=== PATIENT | female | born 1935 | race Asian ===

== ENCOUNTER 2017-12-29 22:28 | Inpatient (IN) | payer MEDICARE, OTHER ==
[2017-12-29 23:03] LABS: MODE ROOM AIR; MetHgb Venous 3.8 %; Sample Type Blood venous; Site VENOUS LINE; Venous COHb 1.4 %; Venous Fraction OxyHgb 51.9 %; Venous Oxygen Sat 54.7 mmHG (55.0-75.0); Venous Total Hemglobin 9.6 g/dl
[2017-12-29] MEDS: SODIUM CHLORIDE 0.9% 1L BAG IV* (23:08)
[2017-12-29] MEDS: ACETAMINOPHEN 325 MG TAB PO (23:10)
[2017-12-29 23:11] LABS: ADD MAN DIFF? NO
[2017-12-29 23:13] LABS: WHITE BLOOD COUNT 16.3 10^3/ul (4.8-10.8)
[2017-12-29 23:13] LABS: ABNORMAL IP MESSAGE 1; BASOPHIL # 0.1 10^3/ul (0.0-0.1); BASOPHILS % 0.3 % (0.0-2.0); EOSINOPHILS % 0.1 % (0.0-7.0); HEMATOCRIT 31.4 % (37.0-47.0); LYMPHOCYTES # 1.1 10^3/ul (0.8-2.9); LYMPHOCYTES % 6.5 % (15.0-51.0); MEAN CORPUSCULAR HEMOGLOBIN 16.6 pg (29.0-33.0); MEAN CORPUSCULAR HGB CONC 25.5 g/dl (32.0-37.0); MEAN PLATELET VOLUME 10.4 fl (7.4-10.4); MONOCYTE # 0.2 10^3/ul (0.3-0.9); MONOCYTES % 1.5 % (0.0-11.0); NEUTROPHIL # 14.8 10^3/ul (1.6-7.5); NEUTROPHILS % 90.9 % (39.0-77.0); PLATELET COUNT 240 10^3/UL (140-415); RED BLOOD COUNT 4.83 10^6/ul (4.20-5.40); RED CELL DISTRIBUTION WIDTH 21.1 % (11.5-14.5)
[2017-12-29 23:18] LABS: POSITIVE DIFF @See below
[2017-12-29 23:21] LABS: HEMOGLOBIN A1C 12.9 % (0-5.9)
[2017-12-29 23:32] LABS: PROTIME 13.3 Sec (11.9-14.9)
[2017-12-29 23:33] LABS: PARTIAL THROMBOPLASTIN TIME 26.3 Sec (23.0-35.0)
[2017-12-29] MEDS: CEFEPIME 2GM/50 ML (PMX) 50 ML IVPB (23:35)
[2017-12-29 23:38] LABS: ALANINE AMINOTRANSFERASE 14 IU/L (13-69); ALKALINE PHOSPHATASE 269 IU/L (42-121); ANION GAP 16 (5-13); ASPARTATE AMINO TRANSFERASE 26 IU/L (15-46); BILIRUBIN,INDIRECT 0.6 mg/dl (0-1.1); BILIRUBIN,TOTAL 0.6 mg/dl (0.2-1.3); BLOOD UREA NITROGEN 20 mg/dl (7-20); CALCIUM 9.5 mg/dl (8.4-10.2); CARBON DIOXIDE 24 mmol/L (21-31); CHLORIDE 93 mmol/L (97-110); CREATININE 1.25 mg/dl (0.44-1.00); LIPASE 925 U/L (23-300); MAGNESIUM 1.8 mg/dl (1.7-2.5); PHOSPHORUS 4.3 mg/dl (2.5-4.9); POTASSIUM 4.9 mmol/L (3.5-5.1); SODIUM 133 mmol/L (135-144); TOTAL PROTEIN 8.4 g/dl (6.1-8.1)
[2017-12-29 23:42] LABS: GLUCOSE 624 mg/dl (70-220); TROPONIN-I 0.024 ng/ml (0.000-0.120)
[2017-12-29 23:59] LABS: ADD UMIC YES; UR ASCORBIC ACID NEGATIVE (NEGATIVE); UR BILIRUBIN (Dip) NEGATIVE (NEGATIVE); UR BLOOD (Dip) 2+ mg/dL (NEGATIVE); UR CLARITY CLEAR (CLEAR); UR COLOR STRAW (YELLOW); UR GLUCOSE (Dip) 3+ mg/dL (NEGATIVE); UR KETONES (Dip) TRACE mg/dL (NEGATIVE); UR LEUKOCYTE ESTERASE (Dip) NEGATIVE Leu/ul (NEGATIVE); UR NITRITE (Dip) NEGATIVE (NEGATIVE); UR RBC 3 /HPF (0-5); UR SPECIFIC GRAVITY (Dip) 1.016 (1.003-1.030); UR TOTAL PROTEIN (Dip) 2+ mg/dl (NEGATIVE); UR UROBILINOGEN (Dip) NEGATIVE (NEGATIVE); UR WBC 1 /HPF (0-5)
[2017-12-30] MEDS: VANCOMYCIN 1 GM (PMX) 250 ML IVPB (00:05)
[2017-12-30] MEDS: INSULIN LISPRO 100 UNIT/ML VIAL SC (00:23)
[2017-12-30] MEDS: INSULIN DETEMIR [LEVEMIR] (100 UNITS/ML) SYG SC (01:00)
[2017-12-30] MEDS ORDERED: DOCUSATE SODIUM 100 MG CAP PO (01:00)
[2017-12-30] MEDS ORDERED: BISACODYL (EC) 5 MG TAB PO (01:00)
[2017-12-30] MEDS ORDERED: MAGNESIUM HYDROXIDE 30ML CUP PO (01:00)
[2017-12-30] MEDS ORDERED: NACL 0.9% 3 ML SYG IV (01:00)
[2017-12-30] MEDS ORDERED: ONDANSETRON 4 MG INJ IV (01:00)
[2017-12-30] MEDS: KETOROLAC 15 MG INJ IV (01:12)
[2017-12-30] MEDS: SOD CHLORIDE 0.9% 1,000 ML IV ×5 (01:48→20:47)
[2017-12-30] MEDS: FAMOTIDINE 20 MG TAB PO ×2 (02:57→08:57)
[2017-12-30 03:24] LABS: ADD MAN DIFF? NO
[2017-12-30 03:25] LABS: WHITE BLOOD COUNT 17.2 10^3/ul (4.8-10.8)
[2017-12-30 03:25] LABS: ABNORMAL IP MESSAGE 1; BASOPHILS % 0.2 % (0.0-2.0); HEMATOCRIT 29.7 % (37.0-47.0); HEMOGLOBIN 7.6 g/dl (12.0-16.0); LYMPHOCYTES # 1.2 10^3/ul (0.8-2.9); LYMPHOCYTES % 7.1 % (15.0-51.0); MEAN CORPUSCULAR HEMOGLOBIN 16.8 pg (29.0-33.0); MEAN CORPUSCULAR HGB CONC 25.6 g/dl (32.0-37.0); MEAN CORPUSCULAR VOLUME 65.6 fl (82.0-101.0); MEAN PLATELET VOLUME 10.1 fl (7.4-10.4); MONOCYTE # 0.4 10^3/ul (0.3-0.9); MONOCYTES % 2.2 % (0.0-11.0); NEUTROPHIL # 15.5 10^3/ul (1.6-7.5); NEUTROPHILS % 89.9 % (39.0-77.0); PLATELET COUNT 216 10^3/UL (140-415); RED BLOOD COUNT 4.53 10^6/ul (4.20-5.40)
[2017-12-30 03:27] LABS: POSITIVE DIFF @See below
[2017-12-30 03:45] LABS: AMYLASE 119 U/L (11-123); ANION GAP 11 (5-13); BLOOD UREA NITROGEN 17 mg/dl (7-20); CARBON DIOXIDE 20 mmol/L (21-31); CHLORIDE 108 mmol/L (97-110); CREATININE 0.95 mg/dl (0.44-1.00); GLUCOSE 367 mg/dl (70-220); LIPASE 568 U/L (23-300); MAGNESIUM 1.6 mg/dl (1.7-2.5); POTASSIUM 4.1 mmol/L (3.5-5.1); SODIUM 139 mmol/L (135-144)
[2017-12-30 03:46] LABS: LACTIC ACID 3.4 mmol/L (0.5-2.0)
[2017-12-30 04:28] LABS: THYROID STIMULATING HORMONE 0.069 MIU/L (0.465-4.680)
[2017-12-30] MEDS ORDERED: GLUCOSE GEL 15 GRAM TUBE PO ×2 (04:30)
[2017-12-30] MEDS ORDERED: GLUCAGON 1 MG INJ IM (04:30)
[2017-12-30] MEDS ORDERED: DEXTROSE 50% 50 ML SYRINGE IV ×2 (04:30)
[2017-12-30] MEDS ORDERED: GLUCOSE GEL 15 GRAM TUBE BUCCAL (04:30)
[2017-12-30] MEDS: ACETAMINOPHEN 325 MG TAB PO (06:46)
[2017-12-30] MEDS: INSULIN ASPART [NOVOLOG] 3 ML PEN SC ×4 (07:00→20:53)
[2017-12-30] MEDS: FERROUS SULFATE (EC) 325 MG TAB PO ×2 (08:57→21:22)
[2017-12-30] MEDS: DONEPEZIL 5 MG TAB PO (08:57)
[2017-12-30] MEDS ORDERED: DONEPEZIL 5 MG PO (09:00)
[2017-12-30] MEDS: ENOXAPARIN 40 MG/0.4 ML SYG SC (09:04)
[2017-12-30] MEDS: MAGNESIUM SULFATE 2 GM/50 ML 50 ML IVPB (12:39)
[2017-12-30 13:02] LABS: LACTIC ACID 1.6 mmol/L (0.5-2.0)
[2017-12-30 13:49] LABS: RETICULOCYTE RBC 3.94
[2017-12-30 13:49] LABS: RETICULOCYTE COUNT # 0.124 X10^6 (0.020-0.110); RETICULOCYTE COUNT % 3.2 % (0.5-1.5)
[2017-12-30 14:09] LABS: IRON 54 ug/dl (35-150)
[2017-12-30 14:18] LABS: % IRON SATURATION 29 % SAT (22-52); TOTAL IRON BINDING CAPACITY 185 ug/dl (241-421)
[2017-12-30 14:24] LABS: FREE T4 (FREE THYROXINE) 1.23 ng/dl (0.85-1.93)
[2017-12-30 14:25] LABS: FREE T3 2.37 pg/ml (2.77-5.27)
[2017-12-30] MEDS: FLUCONAZOLE 200 MG (PMX) 100 ML IVPB (14:49)
[2017-12-30] MEDS: CEFEPIME 2GM/50 ML (PMX) 50 ML IVPB (20:45)
[2017-12-30] MEDS: INSULIN GLARGINE [LANTus] (100 UNITS/ML) SYG SC (20:54)
[2017-12-30] MEDS ORDERED: NON-FORMULARY/PATIENT OWN MED (Simvastatin* (Zocor*) 40 MG) PO (21:00)
[2017-12-30] MEDS: ATORVASTATIN 20 MG TAB PO (21:21)
[2017-12-31] MEDS: INSULIN ASPART [NOVOLOG] 3 ML PEN SC ×5 (01:00→20:59)
[2017-12-31] MEDS: ACCU-CHEK XX (02:00)
[2017-12-31] MEDS: SOD CHLORIDE 0.9% 1,000 ML IV ×2 (02:04→06:47)
[2017-12-31 06:31] LABS: ABNORMAL IP MESSAGE 1; HEMATOCRIT 25.2 % (37.0-47.0); MEAN CORPUSCULAR HEMOGLOBIN 16.4 pg (29.0-33.0); MEAN CORPUSCULAR HGB CONC 25.8 g/dl (32.0-37.0); MEAN CORPUSCULAR VOLUME 63.6 fl (82.0-101.0); MEAN PLATELET VOLUME 10.5 fl (7.4-10.4); NUCLEATED RED BLOOD CELLS% 0.2 /100WBC (0.0-0.0); PLATELET COUNT 192 10^3/UL (140-415); RED BLOOD COUNT 3.96 10^6/ul (4.20-5.40); RED CELL DISTRIBUTION WIDTH 21.2 % (11.5-14.5)
[2017-12-31 06:31] LABS: WHITE BLOOD COUNT 9.8 10^3/ul (4.8-10.8)
[2017-12-31 06:36] LABS: POSITIVE DIFF @See below
[2017-12-31 06:37] LABS: ADD MAN DIFF? YES; PATH REVIEW? YES
[2017-12-31 06:40] LABS: HEMOGLOBIN 6.5 g/dl (12.0-16.0)
[2017-12-31 06:53] LABS: PHOSPHORUS 3.1 mg/dl (2.5-4.9)
[2017-12-31 06:53] LABS: MAGNESIUM 1.9 mg/dl (1.7-2.5)
[2017-12-31 06:58] LABS: ALANINE AMINOTRANSFERASE 11 IU/L (13-69); ALBUMIN 2.5 g/dl (3.3-4.9); ALBUMIN/GLOBULIN RATIO 0.71; ALKALINE PHOSPHATASE 89 IU/L (42-121); AMYLASE 83 U/L (11-123); ANION GAP 7 (5-13); ASPARTATE AMINO TRANSFERASE 23 IU/L (15-46); BILIRUBIN,INDIRECT 0.4 mg/dl (0-1.1); BILIRUBIN,TOTAL 0.4 mg/dl (0.2-1.3); BLOOD UREA NITROGEN 12 mg/dl (7-20); CALCIUM 8.1 mg/dl (8.4-10.2); CARBON DIOXIDE 24 mmol/L (21-31); CHLORIDE 108 mmol/L (97-110); CREATININE 0.91 mg/dl (0.44-1.00); GLUCOSE 150 mg/dl (70-220); LIPASE 294 U/L (23-300); POTASSIUM 3.6 mmol/L (3.5-5.1); SODIUM 139 mmol/L (135-144)
[2017-12-31 07:50] LABS: ANISOCYTOSIS 2+ (0-0); BASOPHILS % (M) 1 % (0-2); BURR CELLS 1+ (0-0); HYPOCHROMASIA 3+ (0-0); LYMPHOCYTES #M 2.6 10^3/ul (0.8-2.9); LYMPHOCYTES % (M) 27 % (15-51); MICROCYTOSIS 1+ (0-0); MONOCYTE #M 0.1 10^3/ul (0.3-0.9); MONOCYTES % (M) 2 % (0-11); PLATELET ESTIMATE NORMAL; POIKILOCYTOSIS 1+ (0-0); POLYCHROMASIA 1+ (0-0); SEGMENTED NEUTROPHILS (M) % 70 % (39-77); SMUDGE%M 46 % (0-0); TARGET CELLS 1+ (0-0)
[2017-12-31] MEDS: SOD CHLORIDE 0.9% 250 ML IV* (09:02)
[2017-12-31] MEDS: FERROUS SULFATE (EC) 325 MG TAB PO ×2 (09:19→20:54)
[2017-12-31] MEDS: DONEPEZIL 5 MG TAB PO (09:19)
[2017-12-31] MEDS: FAMOTIDINE 20 MG INJ IV (09:19)
[2017-12-31] MEDS: ENOXAPARIN 40 MG/0.4 ML SYG SC (09:30)
[2017-12-31] MEDS: MAGNESIUM SULFATE 1 GM/D5W 100 ML IVPB (10:43)
[2017-12-31] MEDS: FUROSEMIDE 40 MG INJ IV (10:44)
[2017-12-31] MEDS: POTASSIUM CHLORIDE (SR) 20 MEQ TAB PO (10:46)
[2017-12-31 11:43] LABS: IMMEDIATE SPIN CROSSMATCH 1 2
[2017-12-31] MEDS: ACETAMINOPHEN 325 MG TAB PO (12:35)
[2017-12-31] MEDS: LINAGLIPTIN 5 MG TABLET PO (17:33)
[2017-12-31] MEDS: FLUCONAZOLE 200 MG (PMX) 100 ML IVPB (17:34)
[2017-12-31] MEDS: CEFEPIME 2GM/50 ML (PMX) 50 ML IVPB (20:53)
[2017-12-31] MEDS: ATORVASTATIN 20 MG TAB PO (20:54)
[2018-01-01] MEDS: ACCU-CHEK XX (02:00)
[2018-01-01] MEDS: ACETAMINOPHEN 325 MG TAB PO ×2 (03:18→06:32)
[2018-01-01] MEDS: INSULIN ASPART [NOVOLOG] 3 ML PEN SC ×2 (08:20→12:30)
[2018-01-01 08:34] LABS: ADD MAN DIFF? NO
[2018-01-01 08:41] LABS: WHITE BLOOD COUNT 9.7 10^3/ul (4.8-10.8)
[2018-01-01 08:41] LABS: ABNORMAL IP MESSAGE 1; BASOPHIL # 0.1 10^3/ul (0.0-0.1); BASOPHILS % 0.6 % (0.0-2.0); EOSINOPHILS # 0.2 10^3/ul (0.0-0.5); EOSINOPHILS % 2.5 % (0.0-7.0); HEMATOCRIT 28.7 % (37.0-47.0); HEMOGLOBIN 8.2 g/dl (12.0-16.0); LYMPHOCYTES # 2.7 10^3/ul (0.8-2.9); LYMPHOCYTES % 27.3 % (15.0-51.0); MEAN CORPUSCULAR HEMOGLOBIN 18.3 pg (29.0-33.0); MEAN CORPUSCULAR HGB CONC 28.6 g/dl (32.0-37.0); MEAN CORPUSCULAR VOLUME 64.1 fl (82.0-101.0); MONOCYTE # 0.7 10^3/ul (0.3-0.9); MONOCYTES % 6.8 % (0.0-11.0); NEUTROPHILS % 62.3 % (39.0-77.0); PLATELET COUNT 180 10^3/UL (140-415); RED BLOOD COUNT 4.48 10^6/ul (4.20-5.40); RED CELL DISTRIBUTION WIDTH 22.9 % (11.5-14.5)
[2018-01-01 08:54] LABS: POSITIVE DIFF @See below
[2018-01-01] MEDS ORDERED: LINAGLIPTIN 5 MG TABLET PO (09:00)
[2018-01-01] MEDS: ENOXAPARIN 40 MG/0.4 ML SYG SC (09:00)
[2018-01-01 09:04] LABS: ANION GAP 7 (5-13); BLOOD UREA NITROGEN 12 mg/dl (7-20); CALCIUM 8.4 mg/dl (8.4-10.2); CARBON DIOXIDE 25 mmol/L (21-31); CHLORIDE 103 mmol/L (97-110); CREATININE 0.99 mg/dl (0.44-1.00); GLUCOSE 249 mg/dl (70-220); POTASSIUM 4.1 mmol/L (3.5-5.1); SODIUM 135 mmol/L (135-144)
[2018-01-01 09:06] LABS: MAGNESIUM 1.5 mg/dl (1.7-2.5)
[2018-01-01] MEDS: FERROUS SULFATE (EC) 325 MG TAB PO (09:17)
[2018-01-01] MEDS: DONEPEZIL 5 MG TAB PO (09:17)
[2018-01-01] MEDS: LINAGLIPTIN 5 MG TABLET PO (09:17)
[2018-01-01] MEDS: FAMOTIDINE 20 MG INJ IV (09:17)
[2018-01-01] MEDS: LOSARTAN 50 MG TAB PO (11:02)
[2018-01-01] MEDS: MAGNESIUM SULFATE 2 GM/50 ML 50 ML IVPB (11:07)
[2018-01-01] MEDS: FLUCONAZOLE 200 MG (PMX) 100 ML IVPB (14:06)
== END 2018-01-01 15:20 | disposition home health service (06) | DRG 872 ==
LOC: E/R 22:28 → TEL 12-30 00:46
PROVIDERS: Internal Medicine
DX: A41.9 Sepsis, unspecified organism (principal); E11.65 Type 2 diabetes mellitus with hyperglycemia; F03.90 Unspecified dementia, unspecified severity, without behavioral disturbance, psychotic disturbance, mood disturbance, and anxiety; E78.5 Hyperlipidemia, unspecified; I10 Essential (primary) hypertension; D50.9 Iron deficiency anemia, unspecified; Z79.4 Long term (current) use of insulin; Z79.84 Long term (current) use of oral hypoglycemic drugs
CPT/HCPCS: 36415; 36430; 71045; 76700; 80048; 80053; 81001; 82150; 82728; 82803; 82962; 83036; 83540; 83605; 83690; 83735; 84100; 84439; 84443; 84481; 84484; 85025; 85045; 85610; 85730; 86850; 86900; 86901; 86920; 87040; 87086; 93005; 96365; 96372; 96375; 97161; 99291-25; G0378